=== PATIENT | female | born 1955 | race Two or more races ===

== ENCOUNTER 2017-08-09 07:59 | Emergency (ER) | payer OTHER ==
[~2017-08-09] VITALS: Ht 154.9 cm; Wt 83.5 kg
[~2017-08-09 07:59] MED LIST: AMARYL; HYZAAR 100/25 T1 TAB; LIPITOR20 MG; METFORMIN HYDRO25 GM; NAPROXEN250 MG; NEURONTIN300 MG; PLAVIX75 MG
[2017-08-09] MEDS ORDERED: LANTUS SOL100 UNIT/1 (08:03)
[2017-08-09] MEDS ORDERED: ZYRTEC10 M3 PO (12:38)
[2017-08-09] MEDS ORDERED: ATARAX25 MG PO (12:38)
[2017-08-09] MEDS ORDERED: FLUCONAZOLE150 MG PO (12:38)
== END 2017-08-09 12:48 | disposition home or self-care (01) ==
LOC: ER 07:59
DX: R21 Rash and other nonspecific skin eruption (principal)